=== PATIENT | male | born 1955 | race Two or more races ===

== ENCOUNTER 2022-11-15 11:29 | Emergency (ER) | payer OTHER, SELFPAY ==
[2022-11-15 11:41] VITALS: BP 147/72; PULSE 95; RESP 12; TEMP 36.4; O2SAT 98
--- NOTE | 2022-11-15 11:49 | PC.NURSE ---
Pt unsure of home medications - cannot produce a list. Instructed to be sure pharmacy is aware of med list to check for interactions.
--- NOTE | 2022-11-15 12:22 | ED.URI ---
HPI - URI/Sore Throat General Chief Complaint: Upper Respiratory Infection Stated Complaint: Sinus Congestion Time Seen by Provider: 11/15/22 12:15 Source: patient, RN notes reviewed and old records reviewed Mode of arrival: ambulatory Limitations: no limitations History of Present Illness HPI Narrative: 67-year-old male who presents to [facility] who recently moved to area from [facility] to [facility] in this area.Patient reports that he has history of sinusitis and has been experiencing sinus congestion, sinus pressure and facial pain and sore throat, and dry cough for the past 3 days. Patient reports that he has been taking some Mucinex DM and also some Robitussin cough syrup for his symptoms, He reports that he has has no known fevers, chill sweats. MD elicited complaint: cough, sore throat, rhinorrhea, nasal congestion and sinus pain Pertinent past history: sinusitis Onset (ago): day(s) (3) Pain scale (0-10): 4 Description of mucous: green Treatments prior to arrival: other (Mucinex, Robitussin) Related Data Allergies Allergy/AdvReac Type Severity Reaction Status Date / Time No Known Allergies Allergy Verified 11/15/22 11:47 Review of Systems Review of Systems: CONSTITUTIONAL: Denies malaise, chills, sweats, or fever. EYES: Denies visual changes, redness, or discharge. ENT: Reports rhinorrhea, congestion, sinus pain,no otalgia positive for sore throat. CARDIOVASCULAR: Denies chest pain, palpitations, or edema. RESPIRATORY: Reports dry cough.? Denies dyspnea. GASTROINTESTINAL: Denies abdominal pain, nausea, vomiting, diarrhea SKIN: Denies rash or itching. MUSCULOSKELETAL: Denies myalgia. NEUROLOGIC: Denies headache. All systems reviewed & are unremarkable except as noted in HPI and below PMFSH Past Medical History Medical History (Updated 11/17/22 @ 10:17 by Pricilla Borrego NP) Bronchitis Diabetes DVT (deep venous thrombosis) Elevated cholesterol Hepatitis C Treated with Harvoni Hypertension Liver disease Lupus (systemic lupus erythematosus) coagulopathy Lymphoma chemotherapy Sinusitis Sleep apnea Surgical History Surgical History (Updated 11/17/22 @ 10:21 by Pricilla Borrego NP) History of removal of Port-a-Cath Social History Social History (Updated 11/17/22 @ 10:21 by Pricilla Borrego NP) Smoking status: Former smoker Additional smoking assessment comments: quit 2002 Alcohol intake: former Substance use: former Substance use type: heroin Last use: 1975 Living arrangements: with family Gender identity (if verbalized by the patient): Male Comments At time of signature, agree with nursing past medical, surgical, social and family history. There is no relevant family history pertinent to the presenting complaint Exam Narrative: GENERAL: Well-appearing, well-nourished, and in no acute distress. HEAD: Normocephalic EYES: PERRLA, conjunctivae clear ENT: Nares clear, turbinates edematous and erythematous, green discharge. Mucous membranes moist.facial pain and pressure TM pearly snider with dull light reflex bilaterally; no tragal tenderness. Oropharynx erythematous without lesions. Tonsils not enlarged and without exudate, no drooling, no hoarseness, no trismus, uvula midline.post nasal discharge NECK: Supple. No lymphadenopathy CHEST: Clear to auscultation, breath sounds equal. No wheezing, rhonchi, rales, or stridor. No respiratory distress, speaks in full sentences.dry cough, SAO2 98% on room air HEART: Regular rate and rhythm. No murmur heard. SKIN: Warm, dry, no rash. NEURO: Alert and oriented x3. PSYCH: Normal mood and affect Course Course Emergency Course: Patient is aware of diagnosis, understands and agrees to treatment plan.? Anticipatory guidance given.? Patient agrees to follow-up as directed and is aware of reasons to seek care at the emergency department. Portions of this record may have been created with voice rec
== END 2022-11-15 12:35 | disposition home or self-care (01) ==
PROVIDERS: Emergency Provider Registered Nurse
DX: J32.9 Chronic sinusitis, unspecified (principal); Z87.891 Personal history of nicotine dependence; E11.9 Type 2 diabetes mellitus without complications; E78.00 Pure hypercholesterolemia, unspecified; I10 Essential (primary) hypertension; K76.9 Liver disease, unspecified; M32.9 Systemic lupus erythematosus, unspecified; Z85.72 Personal history of non-Hodgkin lymphomas; Z92.21 Personal history of antineoplastic chemotherapy
CPT/HCPCS: 99213; G0463

== ENCOUNTER 2022-12-21 14:14 | Emergency (ER) | payer OTHER, SELFPAY ==
--- NOTE | ~2022-12-21 | XR_ITS ---
EXAMINATION: XR chest 2V DATE: 12/21/2022 14:59 INDICATION: Cough. TECHNIQUE: Frontal and lateral views of the chest were obtained. COMPARISON: None. FINDINGS: There are Angel B lines, consistent mild pulmonary edema. There is a small right pleural e ffusion. No pneumothorax. The heart size is normal. There are changes of anterior fusion procedure in cervical spine. There is a filter in the inferior vena cava, likely the suprarenal inferior vena cav a. IMPRESSION: 1. Mild pulmonary edema. 2. Small right pleural effusion. Reviewed, dictated and finalized at location E.
[2022-12-21 14:24] VITALS: BP 168/78; PULSE 69; RESP 16; TEMP 36.7; O2SAT 96
[2022-12-21 14:29] VITALS: BP 168/78; PULSE 69; RESP 16; TEMP 36.7; O2SAT 96
--- NOTE | 2022-12-21 14:29 | ED.URI ---
HPI - URI/Sore Throat General Chief Complaint: Upper Respiratory Infection Stated Complaint: cold/flu Time Seen by Provider: 12/21/22 14:48 Source: patient and RN notes reviewed Mode of arrival: ambulatory Limitations: no limitations History of Present Illness HPI Narrative: 67-year-old male presents with concern for fatigue, cough, postnasal drainage. He reports he recently moved here and because of insurance reasons and primary care physician reasons he has been without his Lasix for couple of weeks. He is trying to get into new primary care doctor. Reports he can not get his Lasix until December. He reports a history of diabetes, reports he recently finished prednisone in his blood sugars have been up in the 300s. Reports ?that is low for me? that his blood sugar occasionally is in the 500s. He denies polyuria, polydipsia, abdominal pain. He denies fever, chills, sweats, nasal congestion, sore throat. MD elicited complaint: cough and other (Fatigue) Related Data Home Medications Medication Instructions Recorded Confirmed dulaglutide 3 mg/0.5 mL mg subcut 12/21/22 subcutaneous pen injector (Trulicity) duloxetine 60 mg capsule,delayed mg PO 12/21/22 release furosemide 20 mg tablet 20 mg PO DAILY 12/21/22 12/21/22 gabapentin 300 mg capsule mg 12/21/22 insulin glargine U-300 conc 300 unit subcut 12/21/22 unit/mL (3 mL) subcutaneous pen (Toujeo Max U-300 SoloStar) insulin lispro 100 unit/mL subcut 12/21/22 subcutaneous pen metformin 1,000 mg tablet mg 12/21/22 pantoprazole 40 mg tablet,delayed mg PO 12/21/22 release rivaroxaban 20 mg tablet (Xarelto) mg 12/21/22 Allergies Allergy/AdvReac Type Severity Reaction Status Date / Time No Known Allergies Allergy Verified 11/15/22 11:47 Review of Systems Review of Systems: CONSTITUTIONAL: Reports malaise, fatigue. Denies chills, sweats, or fever. EYES: Denies visual changes, redness, or discharge. ENT: Reports postnasal drainage. Denies rhinorrhea, congestion, sinus pain, otalgia and sore throat. CARDIOVASCULAR: Denies chest pain, palpitations, or edema. RESPIRATORY: Reports dry cough. Denies dyspnea. GASTROINTESTINAL: Denies abdominal pain, nausea, vomiting, diarrhea SKIN: Denies rash or itching. MUSCULOSKELETAL: Denies myalgia. NEUROLOGIC: Denies headache. All systems reviewed & are unremarkable except as noted in HPI and below PMFSH Past Medical History Medical History (Updated 12/21/22 @ 15:43 by Virgen Mayes NP) Bronchitis Diabetes DVT (deep venous thrombosis) Elevated cholesterol Hepatitis C Treated with Harvoni Hypertension Liver disease Lupus (systemic lupus erythematosus) coagulopathy Lymphoma chemotherapy Sinusitis Sleep apnea Surgical History Surgical History (Updated 11/17/22 @ 10:21 by Pricilla Borrego NP) History of removal of Port-a-Cath Social History Social History (Updated 11/17/22 @ 10:21 by Pricilla Borrego NP) Smoking status: Former smoker Additional smoking assessment comments: quit 2002 Alcohol intake: former Substance use: former Substance use type: heroin Last use: 1975 Living arrangements: with family Gender identity (if verbalized by the patient): Male Comments At time of signature, agree with nursing past medical, surgical, social and family history. There is no relevant family history pertinent to the presenting complaint Exam Narrative: GENERAL: Nontoxic-appearing and in no acute distress. HEAD: Normocephalic EYES: PERRLA, conjunctivae clear ENT: Nares clear, clear discharge. Mucous membranes moist. TM pearly snider with dull light reflex bilaterally; no tragal tenderness. Oropharynx not erythematous without lesions. Tonsils not enlarged and without exudate, no drooling, no hoarseness, no trismus, uvula midline. NECK: Supple. No lymphadenopathy CHEST: Few crackles, otherwise clear to auscultation, breath sounds equal. No wheezing, rhonchi, rales, or strido
[2022-12-21 14:48] LABS: Glucose Point of Care 275 mg/dl (65-105)
== END 2022-12-21 15:30 | disposition short-term general hospital (02) ==
PROVIDERS: Emergency Provider Nurse Practitioner; PCP Hospitalist
DX: J81.1 Chronic pulmonary edema (principal); E11.65 Type 2 diabetes mellitus with hyperglycemia; Z79.4 Long term (current) use of insulin; Z79.84 Long term (current) use of oral hypoglycemic drugs; Z20.822 Contact with and (suspected) exposure to COVID-19; E78.00 Pure hypercholesterolemia, unspecified; I10 Essential (primary) hypertension; M32.9 Systemic lupus erythematosus, unspecified; Z85.72 Personal history of non-Hodgkin lymphomas; Z92.21 Personal history of antineoplastic chemotherapy; Z87.891 Personal history of nicotine dependence
CPT/HCPCS: 71046; 82948; 87081; 87426; 87804; 87880; 99213; C9803; G0463

== ENCOUNTER 2023-01-10 14:48 | Outpatient (CLI) | payer OTHER, SELFPAY ==
[2023-01-10 19:19] LABS: Add Urine Microscopic? YES; Appearance Urine Clear (Clear); Bacteria Urine None Seen /hpf; Bilirubin Urine Negative (Negative); Blood Urine Negative (Negative); Color Urine Dark Yellow (Yellow); Glucose Urine UA 2+ mg/dL (Negative); Ketones Urine Negative (Negative); Leukocyte Esterase Ur Negative LEU/UL (Negative); Need Manual Microscopic Reviewed; Nitrate Urine Negative (Negative); Protein Urine 3+ mg/dL (Negative); Specific Grav Ur 1.018 (1.001-1.035); Squamous Epithelial Cell Urine None seen /hpf (Few); Urobilinogen Urine 0.2 mg/dL (<2.0); WBC Urine 0-5 /hpf; pH Urine 5.5 (5.0-9.0)
[2023-01-10 19:29] LABS: Alanine Aminotransferase 27 U/L (6-50); Albumin Level 4.3 g/dL (3.5-5.1); Alkaline Phosphatase 66 U/L (38-126); Anion Gap 7 mmol/L (8-16); Aspartate Amino Transferase 36 U/L (17-59); Bilirubin,Total 0.6 mg/dL (0.2-1.3); Blood Urea Nitrogen 23 mg/dL (9-20); Calcium 9.1 mg/dL (8.4-10.2); Carbon Dioxide 36 mmol/L (22-30); Chloride 96 mmol/L (98-107); Estimated Glomerular Filt Rate > 60; Glucose 221 mg/dL (65-110); Potassium 3.7 mmol/L (3.4-5.0); Sodium 139 mmol/L (137-145)
[2023-01-10 19:39] LABS: Basophils Percent Auto 0.4 % (0.2-1.2); Eosinophils Absolute Auto 0.2 K/mm3 (0-0.3); Eosinophils Percent Auto 3.7 % (0-4.4); Hematocrit 35.1 % (42.0-52.0); Hemoglobin 10.8 g/dL (14.0-18.0); Immature Granulocyte Absolute 0.01 K/mm3 (0.00-0.031); Immature Granulocyte Percent A 0.2 % (0-0.5); Lymphocytes Absolute Auto 0.69 K/mm3 (0.9-3.2); Lymphocytes Percent Auto 14.2 % (18.3-44.2); Mean Corpuscular HGB Conc 30.8 g/dl (32-36); Mean Corpuscular Hemoglobin 28.3 pg (26-34); Mean Corpuscular Volume 92.1 fl (80-100); Mean Platelet Volume 10.9 fl (7.4-10.4); Monocytes Absolute Auto 0.6 K/mm3 (0.1-0.6); Monocytes Percent Auto 12.7 % (2.6-8.5); Neutrophils Absolute Auto 3.4 K/mm3 (1.3-6.7); Neutrophils Percent Auto 68.8 % (45.5-73.1); Platelet Count Result 128 k/mm3 (150-375); Red Blood Count 3.81 M/mm3 (4.6-6.20); White Blood Count 4.9 K/mm3 (4.5-10.0)
[2023-01-10 19:42] LABS: Prostate Specific Antigen 0.2 ng/mL (< OR = 4.0)
[2023-01-10 20:18] LABS: Hemoglobin A1C 7.6 % (<5.7)
== END 2023-01-10 14:49 | disposition home or self-care (01) ==
LOC: ANHGOSHLAB 14:48
PROVIDERS: PCP Internal Medicine; Visit Provider Nurse Practitioner
DX: E11.9 Type 2 diabetes mellitus without complications (principal); E78.00 Pure hypercholesterolemia, unspecified; I10 Essential (primary) hypertension; K76.9 Liver disease, unspecified; M32.9 Systemic lupus erythematosus, unspecified; Z12.5 Encounter for screening for malignant neoplasm of prostate
CPT/HCPCS: 36415; 80053; 81001; 83036; 84153; 85025; G0103

== ENCOUNTER 2023-01-17 13:25 | Outpatient (CLI) | payer OTHER, SELFPAY ==
--- NOTE | ~2023-01-17 | US_ITS ---
EXAMINATION: US soft tissue groin LT DATE: 01/17/2023 14:00 INDICATION: Left groin lump. Left lower quadrant abdominal pain. TECHNIQUE: Multiple grayscale and Doppler ultrasound images of the left groin were obtained. COMPARISON: None FINDINGS: There is no mass, lymphadenopathy, or hernia in the patient's area of concern in left groin . IMPRESSION: 1. No abnormality in the patient's area of concern in left groin. Reviewed, dictated and finalized at location E.
== END 2023-01-17 13:26 | disposition home or self-care (01) ==
LOC: ANHIMG 13:27
PROVIDERS: PCP Internal Medicine; Visit Provider Nurse Practitioner
DX: R10.32 Left lower quadrant pain (principal)
CPT/HCPCS: 76882

== ENCOUNTER 2023-02-21 11:45 | Outpatient (CLI) | payer OTHER, SELFPAY ==
[2023-02-21 12:17] LABS: Basophils Percent Auto 0.5 % (0.2-1.2); Eosinophils Absolute Auto 0.2 K/mm3 (0-0.3); Eosinophils Percent Auto 4.7 % (0-4.4); Hematocrit 33.9 % (42.0-52.0); Hemoglobin 10.5 g/dL (14.0-18.0); Immature Granulocyte Absolute 0.01 K/mm3 (0.00-0.031); Immature Granulocyte Percent A 0.3 % (0-0.5); Lymphocytes Absolute Auto 0.48 K/mm3 (0.9-3.2); Lymphocytes Percent Auto 13.2 % (18.3-44.2); Mean Corpuscular Hemoglobin 27.9 pg (26-34); Mean Corpuscular Volume 89.9 fl (80-100); Mean Platelet Volume 10.4 fl (7.4-10.4); Monocytes Absolute Auto 0.4 K/mm3 (0.1-0.6); Monocytes Percent Auto 11.8 % (2.6-8.5); Neutrophils Absolute Auto 2.5 K/mm3 (1.3-6.7); Neutrophils Percent Auto 69.5 % (45.5-73.1); Platelet Count Result 138 k/mm3 (150-375); Red Blood Count 3.77 M/mm3 (4.6-6.20); Red Cell Distribution Width 14.6 % (11.5-14.5); White Blood Count 3.6 K/mm3 (4.5-10.0)
[2023-02-21 12:40] LABS: Alanine Aminotransferase 22 U/L (6-50); Albumin Level 4.4 g/dL (3.5-5.1); Alkaline Phosphatase 59 U/L (38-126); Anion Gap 6 mmol/L (8-16); Aspartate Amino Transferase 36 U/L (17-59); Bilirubin,Total 0.4 mg/dL (0.2-1.3); Blood Urea Nitrogen 24 mg/dL (9-20); Calcium 9.3 mg/dL (8.4-10.2); Carbon Dioxide 38 mmol/L (22-30); Chloride 95 mmol/L (98-107); Estimated Glomerular Filt Rate > 60; Glucose 251 mg/dL (65-110); Potassium 3.8 mmol/L (3.4-5.0); Sodium 139 mmol/L (137-145)
[2023-02-21 12:49] LABS: Lactate Dehydrogenase 203 U/L (120-246)
== END 2023-02-21 11:46 | disposition home or self-care (01) ==
LOC: ANHLAB 11:47
PROVIDERS: PCP Internal Medicine; Visit Provider Internal Medicine Hematology & Oncology
DX: C83.30 Diffuse large B-cell lymphoma, unspecified site (principal)
CPT/HCPCS: 36415; 80053; 83615; 85025

== ENCOUNTER 2023-04-03 10:03 | Outpatient (CLI) | payer MEDICAID, SELFPAY | END 2023-04-03 10:04 | disposition home or self-care (01) | PROVIDERS: PCP Internal Medicine; Visit Provider Nurse Practitioner | DX: H90.3 Sensorineural hearing loss, bilateral (principal) | CPT/HCPCS: 92557; 92567 ==

== ENCOUNTER 2023-06-22 16:38 | Emergency (ER) | payer MEDICAID, SELFPAY ==
[2023-06-22 16:49] VITALS: BP 117/57; PULSE 85; RESP 16; TEMP 36.3; O2SAT 97
--- NOTE | 2023-06-22 17:14 | ED.URI ---
HPI - URI/Sore Throat General Chief Complaint: Upper Respiratory Infection Stated Complaint: Chest Congestion/Cough Time Seen by Provider: 06/22/23 17:15 History of Present Illness HPI Narrative: 68 y/o male with hx DM, HTN, DVT presented for c/o sinus congestion and cough for about 4 days. Cough is productive of thick sputum. States he gets these symptoms yearly. Taking Mucinex and cough/cold medication without significant relief. Denies sob, wheezing, n/v/d/f/c. Denies sick contacts. Related Data Home Medications Medication Instructions Recorded Confirmed pantoprazole 40 mg tablet,delayed 40 mg PO DAILY 12/21/22 06/22/23 release atorvastatin 20 mg tablet 20 mg PO QHS 01/17/23 06/22/23 blood sugar diagnostic ([facility] 01/17/23 06/22/23 Ultra Test strips) dulaglutide 1.5 mg/0.5 mL 1.5 mg subcut WEEKLY 01/17/23 06/22/23 subcutaneous pen injector (Trulicity) insulin glargine U-300 conc 300 110 unit subcut DAILY 01/17/23 06/22/23 unit/mL (3 mL) subcutaneous pen (Toujeo Max U-300 SoloStar) [facility] 01/17/23 06/22/23 Lancets) metformin 1,000 mg tablet 1,000 mg PO BID 01/17/23 06/22/23 nadolol 40 mg tablet 40 mg PO DAILY 01/17/23 06/22/23 glucagon 1 mg/0.2 mL subcutaneous 1 mg subcut DAILY PRN Hypoglycemia 06/22/23 06/22/23 auto-injector (Gvoke HypoPen 1-Pack) Allergies Allergy/AdvReac Type Severity Reaction Status Date / Time No Known Allergies Allergy Verified 06/22/23 17:02 [facility] Past Medical History Medical History (Updated 06/22/23 @ 17:54 by Allyson Ashley APRN) Bronchitis Diabetes DVT (deep venous thrombosis) Elevated cholesterol Hepatitis C Treated with Harvoni Hypertension Liver disease Lupus (systemic lupus erythematosus) coagulopathy Lymphoma chemotherapy Sinusitis Sleep apnea Surgical History Surgical History (Updated 01/11/23 @ 09:50 by Kim Manning NP) History of removal of Port-a-Cath Hx of fusion of cervical spine Social History Social History (Updated 01/10/23 @ 13:34 by Marry Johnston MA) Smoking status: Former smoker Additional smoking assessment comments: quit 2002 Alcohol intake: former Substance use: former Substance use type: heroin Last use: 1975 Lack of Transportation: No Lack of Food: Never True Current Housing: I Have Housing Concerned About Future Housing: No Difficulty Paying Gas/Electric Bills: No Difficulty Paying for Meds: No Currently Unemployed: No Education: Master's Degree or Higher Difficulty w/ Childcare or Family Care: No Living arrangements: with family Gender identity (if verbalized by the patient): Male Course Course Level of Care: Express Care Visit Vital Signs Vital signs: Vital Signs Temperature 97.3 F L 06/22/23 16:49 Pulse Rate 85 06/22/23 16:49 Respiratory Rate 16 06/22/23 16:49 Blood Pressure 117/57 L 06/22/23 16:49 Pulse Oximetry 97 06/22/23 16:49 Oxygen Delivery Room Air 06/22/23 16:49 Temperature 97.3 F L 06/22/23 16:49 Pulse Rate 85 06/22/23 16:49 Respiratory Rate 16 06/22/23 16:49 Blood Pressure 117/57 L 06/22/23 16:49 Pulse Oximetry 97 06/22/23 16:49 Oxygen Delivery Room Air 06/22/23 16:49 MDM - URI/Sore Throat MDM Narrative Medical decision making narrative: declined COVID testing stating I do not have COVID. He stated the z-pack helps every year. Discussed at length the likelihood of symptoms being viral, therefore abx not indicated. Advised supportive measures and close monitoring for at least one week. If no improvement or sx worsen he could start the abx. Reviewed signs/symptoms to go to the ER. Pt is appropriate for outpt treatment and f/u. Differential Diagnosis Differential diagnosis: Likely upper respiratory infection, otitis media, sinusitis, viral infection, bronchitis and pharyngitis Discharge Plan Discharge Clinical Impression: Upper respiratory infection Patient
== END 2023-06-22 17:30 | disposition home or self-care (01) ==
PROVIDERS: Emergency Provider Nurse Practitioner Family; PCP Internal Medicine
DX: J06.9 Acute upper respiratory infection, unspecified (principal); Z87.891 Personal history of nicotine dependence; E11.9 Type 2 diabetes mellitus without complications; Z79.4 Long term (current) use of insulin; Z79.84 Long term (current) use of oral hypoglycemic drugs; E78.00 Pure hypercholesterolemia, unspecified; I10 Essential (primary) hypertension; M32.9 Systemic lupus erythematosus, unspecified; Z86.718 Personal history of other venous thrombosis and embolism; Z86.19 Personal history of other infectious and parasitic diseases; Z85.72 Personal history of non-Hodgkin lymphomas; Z92.21 Personal history of antineoplastic chemotherapy
CPT/HCPCS: 99213; G0463